=== PATIENT | female | born 1980 | race Caucasian/White ===

== ENCOUNTER → 2017-05-05 | Outpatient (CLI) | payer MEDICAID ==
--- NOTE | 2017-05-07 02:11 | RADIOLOGY REPORT (SQ) ---
EXAM DESCRIPTION: CERV SP 4 OR 5 VIEWS COMPLETED DATE/TIME: 05/05/2017 1:20 pm REASON FOR STUDY: CERVICALGIA COMPARISON: Cervical spine radiographs 12/12/2009 NUMBER OF VIEWS: Five views. TECHNIQUE: AP, lateral, obliques and odontoid radiographic images acquired of the cervical spine. LIMITATIONS: None. FINDINGS: MINERALIZATION: Normal. ALIGNMENT: Anatomic. VERTEBRAE: Vertebral bodies of normal height. DISCS: There is mild disc space loss of height with anterior and posterior osteophyte formation at C5 -6. FORAMINA: Mild to moderate bilateral C3-4 foraminal narrowing, mild bilateral C4-5 and C5-6 foraminal narrowing. Moderate bilateral C6-7 foraminal narrowing. LATERAL AND POSTERIOR ELEMENTS: Facets, lateral masses and spinous processes without significant find ings. HARDWARE: None in the spine. SOFT TISSUES: No masses or calcifications. Lung apices clear. OTHER: No other significant finding. IMPRESSION: Mild diffuse degenerative changes as above TECHNICAL DOCUMENTATION: JOB ID: [id number] [employer]- All Rights Reserved
== END ==
LOC: RAD 12:51
PROVIDERS: ATTEND Internal Medicine
DX: M54.2 Cervicalgia (principal)
CPT/HCPCS: 72050

== ENCOUNTER 2017-08-06 11:18 | Emergency (ER) | payer SELFPAY ==
--- NOTE | 2017-08-06 11:53 | ER Document Report ---
HPI - HPI Patient complains to provider of: Cough for several days Onset: Other - 2 days Pain Level: 4 Context: 37-year-old smoker female with coughing for 2 days. No chest pain or shortness of breath. Lost her voice with head congestion. No fever. No chills. No nausea vomiting or diarrhea. No abdominal pain. LMP now Associated Symptoms: None Exacerbated by: Denies Relieved by: Denies - ROS ROS below otherwise negative: Yes Systems Reviewed and Negative: Yes All other systems reviewed and negative - CONSTITUTIONAL Constitutional: REPORTS: Fever - patient states. DENIES: Chills - EENT EENT: REPORTS: Sore Throat - w/cough - RESPIRATORY Respiratory: REPORTS: Trouble Breathing, Coughing Past Medical History - General Information source: Patient - Social History Smoking Status: Current Every Day Smoker Chew tobacco use (# tins/day): No Frequency of alcohol use: Occasional Drug Abuse: None Family History: Arthritis, CAD, CVA, DM, Hyperlipidemia, Hypertension Patient has suicidal ideation: No Patient has homicidal ideation: No - Past Medical History Cardiac Medical History: Reports: Hx Hypertension Pulmonary Medical History: Reports: Hx Bronchitis Neurological Medical History: Reports: Hx Migraine Renal/ Medical History: Reports: Hx Ovarian Cysts. Denies: Hx Peritoneal Dialysis Musculoskeltal Medical History: Reports Hx Musculoskeletal Deformity, Reports Hx Musculoskeletal Trauma Psychiatric Medical History: Reports: Hx Anxiety, Hx Depression Past Surgical History: Reports: Hx Tubal Ligation - Immunizations Hx Diphtheria, Pertussis, Tetanus Vaccination: No - unk when last recieved Vertical Provider Document - CONSTITUTIONAL Agree With Documented VS: Yes Exam Limitations: No Limitations General Appearance: No Apparent Distress - INFECTION CONTROL TRAVEL OUTSIDE OF THE [place] IN LAST 30 DAYS: No - HEENT HEENT: Normocephalic, Pharyngeal Erythema. negative: Conjuctival Injection, Pharyngeal Tenderness - NECK Neck: Supple. negative: Lymphadenopathy-Left, Lymphadenopathy-Right - RESPIRATORY Respiratory: No Respiratory Distress, Wheezing - Expiratory bilateral. negative : Rales O2 Sat by Pulse Oximetry: 97 - CARDIOVASCULAR Cardiovascular: Regular Rate, Regular Rhythm - GI/ABDOMEN Gastrointestinal: Abdomen Soft, Abdomen Non-Tender, No Organomegaly - MUSCULOSKELETAL/EXTREMETIES Musculoskeletal/Extremeties: MAEW, FROM - NEURO Level of Consciousness: Awake, Alert - DERM Integumentary: Warm, Dry, No Rash Course - Re-evaluation Re-evalutation: 08/06/17 Chest x-ray is negative and there is still some wheezing but I have given her more prednisone and albuterol metered-dose inhaler and told her to stop smoking. - Vital Signs Vital signs: Temp Pulse Resp BP Pulse Ox 98.2 F 91 20 154/88 H 97 08/06/17 11:27 08/06/17 11:27 08/06/17 11:27 08/06/17 11:27 08/06/17 11:27 Discharge - Discharge Clinical Impression: bronchtis with wheezing Condition: Good Disposition: HOME, SELF-CARE Instructions: Bronchitis With Bronchospasm (Wheezing) (OM), Inhaled Bronchodilators (OM), Stop Smoking (OM), Steroid Medication Additional Instructions: plenty of fluids rest stop smoking use the inhaler every 3 hours for cough finish the prednisone Prescriptions: Albuterol Sulfate [Proair HFA Inhalation Aerosol 8.5 gm MDI] 2 puff IH Q3HP PRN #1 [email or web address] PRN Reason: Prednisone [Deltasone 20 mg Tablet] 40 mg PO DAILY #8 tablet Forms: Return to Work Referrals: IMER FIELD MD [ACTIVE STAFF] - Follow up as needed
[2017-08-06] MEDS ORDERED: PREDNISONE 20 MG TABLET PO ONE (12:04)
[2017-08-06] MEDS ORDERED: ONDANSETRON 4 MG TAB.RAPDIS PO ONE (12:04)
[2017-08-06] MEDS ORDERED: IPRATROPIUM/ALBUTEROL 0.5-2.5 MG/3 ML AMPUL NEB ONE (12:04)
[2017-08-06] MEDS ORDERED: ALBUTEROL SULFATE 0.083% NEB 2.5 MG/3 ML AMPUL NEB ONE (12:24)
--- NOTE | 2017-08-06 13:47 | RADIOLOGY REPORT (SQ) ---
EXAM DESCRIPTION: CHEST PA/LAT COMPLETED DATE/TIME: 08/06/2017 1:26 pm REASON FOR STUDY: cough COMPARISON: None. EXAM PARAMETERS: NUMBER OF VIEWS: two views TECHNIQUE: Digital Frontal and Lateral radiographic views of the chest acquired. RADIATION DOSE: NA LIMITATIONS: none FINDINGS: LUNGS AND PLEURA: No opacities, masses or pneumothorax. No pleural effusion. MEDIASTINUM AND HILAR STRUCTURES: No masses or contour abnormalities. HEART AND VASCULAR STRUCTURES: Heart normal size. No evidence for failure. BONES: No acute findings. HARDWARE: None in the chest. OTHER: No other significant finding. IMPRESSION: NO SIGNIFICANT RADIOGRAPHIC FINDING IN THE CHEST. TECHNICAL DOCUMENTATION: JOB ID: [id number] [employer]- All Rights Reserved
[2017-08-06 14:32] VITALS: BP 153/87
== END 2017-08-06 14:32 | disposition home or self-care (01) ==
LOC: ER 11:18
DX: J40 Bronchitis, not specified as acute or chronic (principal); R06.2 Wheezing; R05 Cough; R09.81 Nasal congestion; F17.200 Nicotine dependence, unspecified, uncomplicated
CPT/HCPCS: 94640 ×2; 99283; 71020; S0119; J7512; J7620

== ENCOUNTER 2017-11-24 10:14 | Emergency (ER) | payer SELFPAY ==
--- NOTE | 2017-11-24 10:54 | ER Document Report ---
ED General - General Chief Complaint: Psych Problem Stated Complaint: PSYCH EVAL Time Seen by Provider: 11/24/17 10:46 TRAVEL OUTSIDE OF THE [place] IN LAST 30 DAYS: No - HPI Patient complains to provider of: Depression Notes: 37-year-old female presents with increasing depression. recently lost his job about a month ago family has had a great deal of financial burdens. She now finds herself tearful every day unable to even manage her children's homework. Denies suicidal homicidal ideation denies all other physical complaints. Looking to get connected with some outpatient resources to help manage her "nerves. Patient takes daily Celexa, as needed Ativan. - Related Data Allergies/Adverse Reactions: No Known Allergies Allergy (Verified 11/24/17 10:17) Past Medical History - Social History Smoking Status: Current Every Day Smoker Family History: Arthritis, CAD, CVA, DM, Hyperlipidemia, Hypertension - Past Medical History Cardiac Medical History: Reports: Hx Hypertension Pulmonary Medical History: Reports: Hx Bronchitis Neurological Medical History: Reports: Hx Migraine Renal/ Medical History: Reports: Hx Ovarian Cysts. Denies: Hx Peritoneal Dialysis Musculoskeltal Medical History: Reports Hx Musculoskeletal Deformity, Reports Hx Musculoskeletal Trauma Psychiatric Medical History: Reports: Hx Anxiety, Hx Depression Past Surgical History: Reports: Hx Tubal Ligation - Immunizations Hx Diphtheria, Pertussis, Tetanus Vaccination: No - unk when last recieved Review of Systems - Review of Systems Notes: REVIEW OF SYSTEMS: CONSTITUTIONAL: -fevers, -chills EENT: -eye pain, -difficulty swallowing, -nasal congestion CARDIOVASCULAR: -chest pain, -syncope. RESPIRATORY: -cough, -SOB GASTROINTESTINAL: -abdominal pain, -nausea, -vomiting, -diarrhea GENITOURINARY: -dysuria, -hematuria MUSCULOSKELETAL: -back pain, -neck pain SKIN: -rash or skin lesions. HEMATOLOGIC: -easy bruising or bleeding. LYMPHATIC: -swollen, enlarged glands. NEUROLOGICAL: -altered mental status or loss of consciousness, -headache, - neurologic symptoms PSYCHIATRIC: Positive depression ALL OTHER SYSTEMS REVIEWED AND NEGATIVE. Physical Exam - Vital signs Vitals: Temp Pulse Resp BP Pulse Ox 97.9 F 97 20 160/100 H 100 11/24/17 10:25 11/24/17 10:25 11/24/17 10:25 11/24/17 10:25 11/24/17 10:25 - Notes Notes: PHYSICAL EXAMINATION: GENERAL: Well-appearing, well-nourished and in no acute distress. HEAD: Atraumatic, normocephalic. EYES: Pupils equal round and reactive to light, extraocular movements intact, sclera anicteric, conjunctiva are normal. ENT: nares patent, oropharynx clear without exudates. Moist mucous membranes. NECK: Normal range of motion, supple without lymphadenopathy LUNGS: Breath sounds clear to auscultation bilaterally and equal. No wheezes rales or rhonchi. HEART: Regular rate and rhythm without murmurs ABDOMEN: Soft, nontender, normoactive bowel sounds. No guarding, no rebound. No masses appreciated. EXTREMITIES: Normal range of motion, no pitting or edema. No cyanosis. NEUROLOGICAL: Cranial nerves grossly intact. Normal speech, normal gait. Normal sensory and motor exams. PSYCH: Normal mood, normal affect. SKIN: Warm, Dry, normal turgor, no rashes or lesions noted. Course - Re-evaluation Re-evalutation: 11/24/17 10:53 Pleasant female presents with increasing depression anxiety. Will consult psychology. - Vital Signs Vital signs: Temp Pulse Resp BP Pulse Ox 97.9 F 97 20 160/100 H 100 11/24/17 10:25 11/24/17 10:25 11/24/17 10:25 11/24/17 10:25 11/24/17 10:25
--- NOTE | 2017-11-24 12:11 | PSYCHOLOGICAL NOTE ---
Psych Note - Psych Note Psych Note: Reason for consult; anxiety/depression symptoms Time of consult 11:20 AM; final disposition;12:20 pm Patient is a 37-year-old female. Patient reports that a year and a half ago her "nerves started acting up". Patient reports that her anxiety has caused her to not eat food and not sleep regularly. Patient reports that on average she gets 2-3 hours of sleep per night. Patient reports the only thing she has eaten in the last 24 hours was "1 bite of a cheeseburger" and feels that it is due to her nerves. Patient reports that 30 years ago she received therapy to treat her anxiety but has not been back since. Patient reports that she is not sure what her previous mental health diagnosis was. Patient reports that she feels like she cannot function because she was not able to help her son do his homework last night. Patient reports that one year ago her dad and she has been dealing with those emotions which has caused her to feel even more anxious. Patient reports that she has high blood pressure and takes medication to treat this, takes Ativan 0.5 mg twice a day to treat her anxiety, and Celexa 40 mg once a day. Patient reports she is seen at Dr. Rodriguez's at [facility]. Patient reports she is interested in resources to find an outpatient therapist to help her deal with the loss of her father, and her anxiety. Patient provided verbal consent to speak to her Jasen Pritchard. Clinician observed patient is tearful. Medications recommendations made by contracted [facility] psychiatric provider Dr. Marifer MD includes: D/C ativan D/C Celexa Begin BuSpar 10 mg twice a day Begin Effexor 37.5 mg twice a day Diagnosis; Per history 300.00 unspecified anxiety disorder V62.82 uncomplicated bereavement Impression/plan; patient is psychiatrically cleared for discharge by mental health. Recommendation for patient to follow-up with outpatient therapy provider. Clinician provided psychoeducation on anxiety disorder and treatment options (evidence based therapies). Clinician observed patient is still in bereavement due to the loss of father. Clinician recommended patient receive grief counseling. Consulted with Dr. Larios regarding the management and care of patient.
[2017-11-24 13:07] VITALS: BP 159/86
== END 2017-11-24 13:00 | disposition home or self-care (01) ==
LOC: ER 10:14
DX: F32.9 Major depressive disorder, single episode, unspecified (principal); I10 Essential (primary) hypertension; Z79.899 Other long term (current) drug therapy; F17.200 Nicotine dependence, unspecified, uncomplicated
CPT/HCPCS: 99284

== ENCOUNTER 2018-03-07 20:18 | Emergency (ER) | payer SELFPAY ==
[2018-03-07 20:57] LABS: ABSOLUTE BASOPHILS # (AUTO) 0.2 10^3/uL (0.0-0.2); ABSOLUTE EOSINOPHILS # (AUTO) 0.3 10^3/uL (0.0-0.6); ABSOLUTE LYMPHOCYTES (AUTO) 5.5 10^3/uL (0.5-4.7); ABSOLUTE MONOCYTES (AUTO) 0.9 10^3/uL (0.1-1.4); ABSOLUTE NEUT (AUTO) 11.7 10^3/uL (1.7-8.2); BASOPHILS % (AUTO) 0.9 % (0-2); EOSINOPHILS % (AUTO) 1.4 % (0-6); HEMATOCRIT 39.5 % (36.0-47.0); HEMOGLOBIN 13.7 g/dL (12.0-15.5); LYMPHOCYTES % (AUTO) 29.7 % (13-45); MEAN CORPUSCULAR HGB CONC 34.7 g/dL (32.0-36.0); MEAN CORPUSCULAR VOLUME 98 fl (80-97); MONOCYTES % (AUTO) 5.1 % (3-13); PLATELET COUNT 268 10^3/uL (150-450); RED BLOOD COUNT 4.04 10^6/uL (3.72-5.28); RED CELL DISTRIBUTION WIDTH 13.3 % (11.5-14.0); SEGMENTED NEUTROPHILS % (AUTO) 62.9 % (42-78); TOTAL CELLS COUNTED % (AUTO) 100 %; WHITE BLOOD COUNT 18.5 10^3/uL (4.0-10.5)
[2018-03-07 20:59] LABS: APPEARANCE,URINE CLEAR; BILIRUBIN,URINE NEGATIVE (NEGATIVE); COLOR,URINE STRAW; GLUCOSE, URINE NEGATIVE (NEGATIVE); KETONES,URINE NEGATIVE (NEGATIVE); LEUKOCYTE ESTERASE,URINE SMALL (NEGATIVE); NITRITE,URINE NEGATIVE (NEGATIVE); PROTEIN,URINE NEGATIVE (NEGATIVE); URINE SPECIFIC GRAVITY 1.004; UROBILINOGEN,URINE NEGATIVE mg/dL (<2.0)
[2018-03-07] MEDS ORDERED: NORMAL SALINE 1000 ML 2,000 ML IV ONE (21:11)
[2018-03-07] MEDS ORDERED: NICOTINE 21 MG/24 HR PATCH.TD24 TD ONE (21:12)
--- NOTE | 2018-03-07 21:12 | ER Document Report ---
ED General - General Chief Complaint: Overdose Stated Complaint: POSSIBLE OVERDOSE Time Seen by Provider: 03/07/18 20:32 Cannot obtain history due to: Uncooperative Notes: Patient is a 37-year-old female with a past medical history of anxiety and depression who presents after an intentional overdose on 30 tablets of Zanaflex. The patient is tearful, history somewhat limited secondary to anxiety at time of presentation. She states that she did this to "just go away ". Patient states that "I just do not want to be here anymore". She does however deny that this was an overt suicide attempt. She states the last time she attempted to harm herself as when she was a child when her parents became . She denies any coingestions today other than Zanaflex. She notes that she has been taking her lorazepam Celexa as prescribed but did not take any extra of those medications today. She denies any symptoms at the time of my assessment than mild lightheadedness. She did receive activated charcoal and IV fluids by EMS prior to arrival. She denies any specific trigger for today's event although seems very hesitant to discuss what occurred today to trigger her to attempt to harm herself. TRAVEL OUTSIDE OF THE [place] IN LAST 30 DAYS: No - Related Data Allergies/Adverse Reactions: No Known Allergies Allergy (Verified 03/07/18 20:56) Past Medical History - General Information source: Patient - Social History Smoking Status: Current Every Day Smoker Frequency of alcohol use: None Drug Abuse: None Lives with: Spouse/Significant other Family History: Arthritis, CAD, CVA, DM, Hyperlipidemia, Hypertension Patient has suicidal ideation: Yes Patient has homicidal ideation: No - Past Medical History Cardiac Medical History: Reports: Hx Hypertension Pulmonary Medical History: Reports: Hx Bronchitis, Hx COPD Neurological Medical History: Reports: Hx Migraine Renal/ Medical History: Reports: Hx Ovarian Cysts. Denies: Hx Peritoneal Dialysis Musculoskeltal Medical History: Reports Hx Musculoskeletal Deformity, Reports Hx Musculoskeletal Trauma Psychiatric Medical History: Reports: Hx Anxiety, Hx Depression Past Surgical History: Reports: Hx Tubal Ligation - Immunizations Hx Diphtheria, Pertussis, Tetanus Vaccination: No - unk when last recieved Review of Systems - Review of Systems Notes: Constitutional: Negative for fever. HENT: Negative for sore throat. Eyes: Negative for visual changes. Cardiovascular: Negative for chest pain. Positive for lightheadedness Respiratory: Negative for shortness of breath. Gastrointestinal: Negative for abdominal pain, vomiting or diarrhea. Genitourinary: Negative for dysuria. Musculoskeletal: Negative for back pain. Skin: Negative for rash. Neurological: Negative for headaches, weakness or numbness. 10 point ROS negative except as marked above and in HPI. Physical Exam - Vital signs Vitals: Temp 98.8 F 03/07/18 20:20 Interpretation: Hypotensive Notes: PHYSICAL EXAMINATION: GENERAL: Well-appearing, well-nourished and in no acute distress. HEAD: Atraumatic, normocephalic. EYES: Pupils equal round and reactive to light, extraocular movements intact, sclera anicteric, conjunctiva are normal. ENT: nares patent, oropharynx clear without exudates. Moist mucous membranes. NECK: Normal range of motion, supple without lymphadenopathy LUNGS: Breath sounds clear to auscultation bilaterally and equal. No wheezes rales or rhonchi. HEART: Regular rate and rhythm without murmurs ABDOMEN: Soft, nontender, normoactive bowel sounds. No guarding, no rebound. No masses appreciated. EXTREMITIES: Normal range of motion, no pitting or edema. No cyanosis. NEUROLOGICAL: No focal neurological deficits. Moves all extremities spontaneously and on command. PSYCH: Anxious, tearful SKIN: Warm, Dry, normal turgor, no rashes or lesions noted. Course - Re-evaluation Re-evalutation: 03/07/18 21:10 Patient presents after intentionally overdosing on 30 tablets of Zanaflex. She states that she "just wants to go away"but will not overtly state that this was a suicide attempt. The patient denies a history of similar in the past. She is unwilling to discuss further the trigger for today's events. The patient denies any physical complaints other than family she needs a cigarette. The patient has been placed on involuntary commitment due to her overdose. She is noted to be moderately hypotensive, pressure is currently 90 on 50 and she is receiving IV fluids. Poison control has been contacted. They have recommended cardiac monitoring for 6 hours postingestion. She is receiving IV fluids for her hypotension and will require ongoing reassessments. 03/07/18 22:43 Patient blood pressure has normalized after receiving IV fluids. She remains without tachycardia. She remains awake and alert. Will continue to monitor on telemetry. 03/08/18 03:19 Patient is medically cleared for evaluation and disposition by psychiatry in the morning. She has remained hemodynamically within normal limits for the past several hours. Poison control has been updated and is agreeable to discontinuation of medical monitoring at this time point. - Vital Signs Vital signs: Temp Pulse Resp BP Pulse Ox 97.9 F 19 132/68 H 95 03/08/18 02:44 03/08/18 02:42 03/08/18 02:42 03/08/18 02:42 - Laboratory Result Diagrams: 03/07/18 20:30 03/07/18 20:30 Laboratory results interpreted by me: 03/07/18 03/07/18 03/07/18 20:30 20:30 20:31 WBC 18.5 H MCV 98 H MCH 34.0 H Absolute Neutrophils 11.7 H Absolute Lymphocytes 5.5 H Sodium 145.9 H Chloride 112 H Carbon Dioxide 18 L BUN 4 L Glucose 144 H Urine Blood SMALL H Ur Leukocyte Esterase SMALL H Salicylates < 1.0 L Acetaminophen < 10 L - EKG Interpretation by Me Additional EKG results interpreted by me: 03/08/18 03:18 Sinus rhythm. Rate 74. No ST elevations or depressions. QTC is 449. Discharge - Discharge Clinical Impression: Suicide attempt, Anxiety Drug overdose, intentional Qualifiers: Encounter type: initial encounter Qualified Code(s): T50.902A - Poisoning by unspecified drugs, medicaments and biological substances, intentional self-harm , initial encounter Condition: Fair Referrals: ERIN FREITAS MD [Primary Care Provider] - Follow up as needed
[2018-03-07 21:13] LABS: URINE AMPHETAMINES SCREEN NEGATIVE; URINE BARBITURATES SCREEN NEGATIVE; URINE BENZODIAZEPINES SCREEN NEGATIVE; URINE COCAINE SCREEN NEGATIVE; URINE MARIJUANA (THC) SCREEN NEGATIVE; URINE METHADONE SCREEN NEGATIVE; URINE PHENCYCLIDINE SCREEN NEGATIVE
[2018-03-07 21:14] LABS: ALANINE AMINOTRANSFERASE 43 U/L (9-52); ALBUMIN 4.1 g/dL (3.5-5.0); ALCOHOL 82 mg/dL (NONE DETECTED); ALKALINE PHOSPHATASE 87 U/L (38-126); ANION GAP 16 (5-19); ASPARTATE AMINO TRANSFERASE 29 U/L (14-36); BILIRUBIN,DIRECT 0.2 mg/dL (0.0-0.4); BILIRUBIN,TOTAL 0.2 mg/dL (0.2-1.3); BLOOD UREA NITROGEN 4 mg/dL (7-20); CALCIUM 9.6 mg/dL (8.4-10.2); CARBON DIOXIDE 18 mmol/L (22-30); CHLORIDE 112 mmol/L (98-107); GLUCOSE 144 mg/dL (75-110); SODIUM 145.9 mmol/L (137-145); TOTAL PROTEIN 6.8 g/dL (6.3-8.2)
[2018-03-07 21:16] LABS: ACETAMINOPHEN < 10 ug/mL (10-30); SALICYLATE < 1.0 mg/dL (2.0-20.0)
--- NOTE | 2018-03-07 22:14 | EKG REPORT ---
SEVERITY:- ABNORMAL ECG - SINUS RHYTHM ABNORMAL T, CONSIDER ISCHEMIA, LATERAL LEADS : Confirmed by: Rory Vallejo 07-Mar-2018 22:13:34
[2018-03-08] MEDS ORDERED: AMLODIPINE BESYLATE 10 MG TABLET PO ONE (09:44)
--- NOTE | 2018-03-08 09:46 | ER Document Report ---
Doctor's Note Notes: This is a 37-year-old female with a history of hypertension that presented yesterday after an intentional overdose with Zanaflex in the setting of depression and suicidal ideation. Patient was hypotensive initially. Ultimately, her blood pressure improved and she is now IVC for psychiatric evaluation. Currently, vital signs are stable. She is alert and oriented 3, she wants to apologize to her and son for yesterday. Her physical exam is unremarkable. Will restart the blood pressure medicine. 03/08/18 09:46 03/08/18 10:13 03/08/18 18:25 Discussed case with psychiatry and the family has come in. The plan will be for transfer for inpatient psychiatric care.
[2018-03-08] MEDS ORDERED: ACETAMINOPHEN 325 MG TABLET PO ONE (10:13)
[2018-03-08] MEDS ORDERED: NICOTINE 21 MG/24 HR PATCH.TD24 TD ONE (10:20)
[2018-03-08] MEDS ORDERED: VENLAFAXINE HCL 37.5 MG CAP.SR.24H PO SCH ×2 (11:45→22:00)
[2018-03-08] MEDS ORDERED: BUSPIRONE HCL 10 MG TABLET PO SCH ×2 (11:45→22:00)
[2018-03-08] MEDS ORDERED: VENLAFAXINE HCL 37.5 MG CAP.SR.24H PO ONE (12:30)
[2018-03-08] MEDS ORDERED: BUSPIRONE HCL 10 MG TABLET PO ONE (12:30)
[2018-03-08 14:19] LABS: APPEARANCE,URINE CLEAR; BILIRUBIN,URINE NEGATIVE (NEGATIVE); COLOR,URINE COLORLESS; GLUCOSE, URINE NEGATIVE (NEGATIVE); KETONES,URINE NEGATIVE (NEGATIVE); LEUKOCYTE ESTERASE,URINE NEGATIVE (NEGATIVE); NITRITE,URINE NEGATIVE (NEGATIVE); PROTEIN,URINE NEGATIVE (NEGATIVE); URINE SPECIFIC GRAVITY 1.001; UROBILINOGEN,URINE NEGATIVE mg/dL (<2.0)
[2018-03-08 15:25] LABS: ABSOLUTE BASOPHILS # (AUTO) 0.1 10^3/uL (0.0-0.2); ABSOLUTE EOSINOPHILS # (AUTO) 0.2 10^3/uL (0.0-0.6); ABSOLUTE LYMPHOCYTES (AUTO) 4.9 10^3/uL (0.5-4.7); ABSOLUTE MONOCYTES (AUTO) 0.8 10^3/uL (0.1-1.4); ABSOLUTE NEUT (AUTO) 9.9 10^3/uL (1.7-8.2); BASOPHILS % (AUTO) 0.4 % (0-2); EOSINOPHILS % (AUTO) 1.4 % (0-6); HEMATOCRIT 40.3 % (36.0-47.0); LYMPHOCYTES % (AUTO) 30.8 % (13-45); MEAN CORPUSCULAR HEMOGLOBIN 33.5 pg (27.0-33.4); MEAN CORPUSCULAR HGB CONC 34.6 g/dL (32.0-36.0); MEAN CORPUSCULAR VOLUME 97 fl (80-97); MONOCYTES % (AUTO) 5.2 % (3-13); PLATELET COUNT 226 10^3/uL (150-450); RED BLOOD COUNT 4.17 10^6/uL (3.72-5.28); RED CELL DISTRIBUTION WIDTH 13.6 % (11.5-14.0); SEGMENTED NEUTROPHILS % (AUTO) 62.2 % (42-78); TOTAL CELLS COUNTED % (AUTO) 100 %; WHITE BLOOD COUNT 15.9 10^3/uL (4.0-10.5)
--- NOTE | 2018-03-08 16:39 | PSYCHOLOGICAL NOTE ---
Psych Note - Psych Note Psych Note: Pt presents to the ER via EMS after taking 30 4mg tabs of zanaflex. Pt reports that she has not been suicidal for an extended period of time but that she felt overwhelmed today. Pt did not report much more than that as pt became tearful. Patient disclosed she arrived to [facility] ED via EMS because she "took too many pills." Patient states "it got to be too much yesterday." Patient states that she is has multiple stressors both at home and at work. Patient was able to further explain that her suffers from seizures and yesterday he had a seizure when she called out to work her boss "is a crazy lady" which originally fired her for not coming in but then called back 30 minutes later to rehire her. She continued disclose other stressors in the home which include her brother has moved into her home with his family present brand-new baby) while she states she knows she is not responsible for them she feels she is because her and her home. She reports that her father approximately 2 years ago she was very close with him so on Wednesday, Father's Day, it was very difficult for her. She continued disclosed that she has been trying to get on Medicaid so has not followed up with any outpatient services and denies changing her medications because she feels that medication she was on was working. Patient is alert and orientated to person, place, time and circumstance. Mood is dysphoric with congruent affect. Patient confirms overdose of her medications with intent at self-harm. Patient denies homicidal ideation. Delusions are absent behaviors congruent with intact reality based presentation i.e. organized and linear thought process. Eye contact was fair. Conversational speech was within normal rate, tone and prosody. Intellectual abilities appear to be within the average range. Attention and concentration were fair. Insight, judgment, impulse control are poor. Chart review conducted. Patient was seen approximately 3 months ago with recommendations of medication adjustments and obtaining outpatient mental health treatment. Patient did not follow recommendations. Medication recommendations per [facility]'s contracted psychiatrist Dr. Marifer RENEE are as follows Please stop home medications of Celexa and Ativan 1. Effexor 37.5 mg twice daily 2. BuSpar 10 mg twice daily Impression\\plan: Patient is recommended to continue under IVC. Patient was seen approximately 3 months ago and did not follow any recommendations provided which included medication changes and obtaining outpatient mental health provider. There is significant concern the patient is now presenting after intentional overdose after patient reports increase in home and job stressors. Medication recommendations have been provided. Dr. Larios was consulted and the care and management this patient; attending physician is in agreement with recommendations and disposition. Patient was accepted to [facility]; transportation will occur today
--- NOTE | 2018-03-08 21:47 | ER Document Report ---
Doctor's Note Notes: 03/08/18 21:47 [facility] department deputies are here to transport the patient to [facility]. Her vital signs are stable. She is stable for transport.
[2018-03-08 21:57] VITALS: BP 135/75
== END 2018-03-08 21:50 ==
LOC: ER 20:18
DX: T42.8X2A Poisoning by antiparkinsonism drugs and other central muscle-tone depressants, intentional self-harm, initial encounter (principal); F41.9 Anxiety disorder, unspecified; F32.9 Major depressive disorder, single episode, unspecified; Z79.899 Other long term (current) drug therapy; F17.210 Nicotine dependence, cigarettes, uncomplicated; I10 Essential (primary) hypertension; J44.9 Chronic obstructive pulmonary disease, unspecified
CPT/HCPCS: 93005; 99285; 36415; 87086; 80307 ×4; 84702; 85025; 87088; 80053; 81001; 87186; 93010; J3490; J7030

== ENCOUNTER 2018-07-11 15:01 | Emergency (ER) | payer SELFPAY ==
[2018-07-11 15:15] VITALS: BP 137/80
--- NOTE | 2018-07-11 15:47 | ER Document Report ---
ED Medical Screen (RME) - General Chief Complaint: Chest Pain Stated Complaint: CHEST,ARM PAIN Time Seen by Provider: 07/11/18 15:24 Notes: Patient is a 38-year-old female that presents to the emergency department for chief complaint of chest pain. Patient states she started having chest pain around 7 AM this morning, initially as a sharp pain, currently rates the pain as a 4 out of 10, now more of a dull ache that is constant, radiates to her left jaw and arm. She had associated shortness of breath as well. ROS: Unless otherwise stated in this report the patient's positive and negative responses for review of systems for constitutional, eyes, ENT, cardiovascular, respiratory, gastrointestinal, neurological, genitourinary, musculoskeletal, and integumentary systems and related systems to the presenting problem are either as stated in the HPI or were not pertinent or were negative for the symptoms and/or complaints related to the presenting medical problem. PHYSICAL EXAMINATION: Vital signs reviewed. GENERAL: Well-appearing, well-nourished and in no acute distress. HEAD: Atraumatic, normocephalic. EYES: Pupils equal round extraocular movements intact, conjunctiva are normal. ENT: Nares patent NECK: Normal range of motion CV: Heart regular rate and rhythm LUNGS: No respiratory distress Musculoskeletal: Normal range of motion NEUROLOGICAL: Normal speech PSYCH: Normal mood, normal affect. MDM: Patient seen and examined for rapid initial assessment. Vital signs reviewed. EKG reviewed, no STEMI, she did have some trace ST depressions, but these were present on her prior EKG . A comprehensive ED assessment and evaluation of the patient, analysis of test results and completion of the medical decision making process will be conducted by additional ED providers. *Note is created using voice recognition software and may contain spelling, syntax or grammatical errors. TRAVEL OUTSIDE OF THE [place] IN LAST 30 DAYS: No - Related Data Allergies/Adverse Reactions: No Known Allergies Allergy (Verified 03/07/18 20:56) Past Medical History - Social History Chew tobacco use (# tins/day): No Frequency of alcohol use: Occasional Drug Abuse: None - Past Medical History Cardiac Medical History: Reports: Hx Hypertension Pulmonary Medical History: Reports: Hx Bronchitis, Hx COPD Neurological Medical History: Reports: Hx Migraine Renal/ Medical History: Reports: Hx Ovarian Cysts. Denies: Hx Peritoneal Dialysis Musculoskeltal Medical History: Reports Hx Musculoskeletal Deformity, Reports Hx Musculoskeletal Trauma Psychiatric Medical History: Reports: Hx Anxiety, Hx Depression Past Surgical History: Reports: Hx Tubal Ligation - Immunizations Hx Diphtheria, Pertussis, Tetanus Vaccination: No - unk when last recieved Physical Exam - Vital signs Vitals: Temp Pulse Resp BP Pulse Ox 98.8 F 87 16 137/80 H 99 07/11/18 15:13 07/11/18 15:13 07/11/18 15:13 07/11/18 15:13 07/11/18 15:13 Course - Re-evaluation Re-evalutation: Cardiac workup was initiated in the patient, EKG was reviewed, no STEMI, however patient did not want any further workup, and wished to leave AGAINST MEDICAL ADVICE, encouraged her that this is not a good idea given that she does have some ischemic changes on her EKG, however she refused, stating that she cannot afford it, does not want any further evaluation, patient left AMA. After performing a Medical Screening Examination, I spoke with the patient at length in regards to leaving the hospital against medical advice. I discussed evaluation for their presenting complaint and recommended further evaluation. I do not believe the patient should leave but the patient is alert oriented x4, understands the risks and benefits of staying and leaving including disability and . Pt understands that they can return at any time for further care and is more than welcome to do so. Pt verbalizes this understanding. - Vital Signs Vital signs: Temp Pulse Resp BP Pulse Ox 98.8 F 87 16 137/80 H 99 07/11/18 15:13 07/11/18 15:13 07/11/18 15:13 07/11/18 15:13 07/11/18 15:13 - EKG Interpretation by Me Additional EKG results interpreted by me: EKG demonstrates sinus rhythm with a ventricular rate of 87 bpm, normal axis, normal intervals, there are ST depressions, in leads II, III and aVF, as well as V4 through V6, this is compared with prior EKG, that did demonstrate the same changes. Doctor's Discharge - Discharge Clinical Impression: Chest pain Qualifiers: Chest pain type: unspecified Qualified Code(s): R07.9 - Chest pain, unspecified Condition: Fair Disposition: AGAINST MEDICAL ADVICE Instructions: Chest Pain of Unclear Cause ([facility]) Forms: Parent Work Note Referrals: ERIN FREITAS MD [Primary Care Provider] - Follow up as needed
--- NOTE | 2018-07-11 23:18 | EKG REPORT ---
SEVERITY:- NORMAL ECG - SINUS RHYTHM LVH WITH SEC ST-T CHANGES : Confirmed by: Rory Vallejo 11-Jul-2018 23:18:00
== END 2018-07-11 16:29 | disposition left against medical advice (07) ==
LOC: ER 15:01
DX: R07.9 Chest pain, unspecified (principal); M79.602 Pain in left arm; R06.02 Shortness of breath; I10 Essential (primary) hypertension; J44.9 Chronic obstructive pulmonary disease, unspecified; Z98.51 Tubal ligation status
CPT/HCPCS: 36415; 93005; 93010; 99285

== ENCOUNTER 2018-08-23 05:02 | Emergency (ER) | payer SELFPAY ==
[2018-08-23] MEDS ORDERED: ASPIRIN 81 MG TABLET, CHEWABLE PO ONE (05:46)
--- NOTE | 2018-08-23 05:47 | ER Document Report ---
ED Medical Screen (RME) - General Chief Complaint: Chest Pain Stated Complaint: CHEST PAIN Time Seen by Provider: 08/23/18 05:45 Notes: Patient is a 38-year-old female presenting to the emergency department complaining of 5 out of 10 sharp chest pain. Patient states the chest pain is underneath her left breast and awoke her from sleeping. Patient then noted she was also short of breath. Patient denies any episodes of diaphoresis. Patient does states she has a history of COPD and did not take her albuterol inhaler prior to coming to the emergency room. Past medical history: Hypertension, anxiety Medications: Lorazepam, patient is unsure of her hypertension medication Allergies: None Patient does admit to everyday cigarette smoking. Physical exam: Lung sounds clear to equal all [place], chest pain is under left breast and nonreproducible at this time. I have greeted and performed a rapid initial assessment of this patient. A comprehensive ED assessment and evaluation of the patient, analysis of test results and completion of the medical decision making process will be conducted by additional ED providers. TRAVEL OUTSIDE OF THE [place] IN LAST 30 DAYS: No - Related Data Allergies/Adverse Reactions: No Known Allergies Allergy (Verified 03/07/18 20:56) Past Medical History - Past Medical History Cardiac Medical History: Reports: Hx Hypertension Pulmonary Medical History: Reports: Hx Bronchitis, Hx COPD Neurological Medical History: Reports: Hx Migraine Renal/ Medical History: Reports: Hx Ovarian Cysts. Denies: Hx Peritoneal Dialysis Musculoskeltal Medical History: Reports Hx Musculoskeletal Deformity, Reports Hx Musculoskeletal Trauma Psychiatric Medical History: Reports: Hx Anxiety, Hx Depression Past Surgical History: Reports: Hx Tubal Ligation - Immunizations Hx Diphtheria, Pertussis, Tetanus Vaccination: No - unk when last recieved Physical Exam - Vital signs Vitals: Temp Pulse Resp BP Pulse Ox 98.6 F 90 20 180/99 H 100 08/23/18 05:17 08/23/18 05:17 08/23/18 05:17 08/23/18 05:17 08/23/18 05:17 Course - Vital Signs Vital signs: Temp Pulse Resp BP Pulse Ox 98.6 F 90 20 180/99 H 100 08/23/18 05:17 08/23/18 05:17 08/23/18 05:17 08/23/18 05:17 08/23/18 05:17 Doctor's Discharge - Discharge Referrals: ERIN FREITAS MD [Primary Care Provider] - Follow up as needed
[2018-08-23 05:56] LABS: ABSOLUTE BASOPHILS # (AUTO) 0.1 10^3/uL (0.0-0.2); ABSOLUTE EOSINOPHILS # (AUTO) 0.2 10^3/uL (0.0-0.6); ABSOLUTE LYMPHOCYTES (AUTO) 3.3 10^3/uL (0.5-4.7); ABSOLUTE MONOCYTES (AUTO) 0.6 10^3/uL (0.1-1.4); ABSOLUTE NEUT (AUTO) 6.8 10^3/uL (1.7-8.2); BASOPHILS % (AUTO) 0.8 % (0-2); EOSINOPHILS % (AUTO) 1.7 % (0-6); HEMATOCRIT 40.7 % (36.0-47.0); HEMOGLOBIN 14.3 g/dL (12.0-15.5); LYMPHOCYTES % (AUTO) 30.2 % (13-45); MEAN CORPUSCULAR HEMOGLOBIN 33.4 pg (27.0-33.4); MEAN CORPUSCULAR HGB CONC 35.1 g/dL (32.0-36.0); MEAN CORPUSCULAR VOLUME 95 fl (80-97); MONOCYTES % (AUTO) 5.2 % (3-13); PLATELET COUNT 209 10^3/uL (150-450); RED BLOOD COUNT 4.27 10^6/uL (3.72-5.28); RED CELL DISTRIBUTION WIDTH 13.5 % (11.5-14.0); SEGMENTED NEUTROPHILS % (AUTO) 62.1 % (42-78); TOTAL CELLS COUNTED % (AUTO) 100 %
[2018-08-23 06:03] LABS: ALANINE AMINOTRANSFERASE 18 U/L (9-52); ALBUMIN 3.9 g/dL (3.5-5.0); ALKALINE PHOSPHATASE 91 U/L (38-126); ANION GAP 15 (5-19); ASPARTATE AMINO TRANSFERASE 28 U/L (14-36); BILIRUBIN,DIRECT 0.3 mg/dL (0.0-0.4); BILIRUBIN,TOTAL 0.4 mg/dL (0.2-1.3); BLOOD UREA NITROGEN 5 mg/dL (7-20); CARBON DIOXIDE 19 mmol/L (22-30); CHLORIDE 108 mmol/L (98-107); CREATINE KINASE 47 U/L (30-135); GLUCOSE 124 mg/dL (75-110); POTASSIUM 3.6 mmol/L (3.6-5.0); SODIUM 142.4 mmol/L (137-145); TOTAL PROTEIN 6.9 g/dL (6.3-8.2)
[2018-08-23 06:14] LABS: CREATINE KINASE MB 0.23 ng/mL (<4.55)
[2018-08-23 06:15] LABS: TROPONIN I < 0.012 ng/mL
--- NOTE | 2018-08-23 06:23 | RADIOLOGY REPORT (SQ) ---
CLINICAL HISTORY: CP COMPARISON: August 06, 2017. TECHNIQUE: XR CHEST 1 VIEW 08/23/2018 5:47 AM OIL CHANGER FINDINGS: Cardiac silhouette is normal in size. Lungs are clear without consolidation, atelectasis, mass or edema. There is no pleural effusion. There is no pneumothorax. There are no acute osseous findings. IMPRESSION: Clear lungs.
--- NOTE | 2018-08-23 07:32 | ER Document Report ---
ED Cardiac - General Chief Complaint: Chest Pain Stated Complaint: CHEST PAIN Time Seen by Provider: 08/23/18 05:45 Mode of Arrival: Ambulatory Information source: Patient TRAVEL OUTSIDE OF THE [place] IN LAST 30 DAYS: No - HPI Patient complains to provider of: Other - 38-year-old female with a history of hypertension as well as early stages of COPD that presents for evaluation of pain along the left side of her chest which developed since yesterday. She has been feeling unwell for a week with a cough and some shortness of breath. She had a vague pain in the left side of the chest which prompted her to seek care today. She is not taking any medications currently because of pricing issues and she has continued to be an every day smoker. She denies any loss of consciousness or similar symptoms in the past save a single episode which she was evaluated in the emergency department for and discharged after a reassuring workup. - Related Data Allergies/Adverse Reactions: No Known Allergies Allergy (Verified 08/23/18 07:21) Past Medical History - General Information source: Patient - Social History Smoking Status: Current Every Day Smoker Smoking Education Provided: Yes Family History: Arthritis, CAD, CVA, DM, Hyperlipidemia, Hypertension Patient has suicidal ideation: No Patient has homicidal ideation: No - Past Medical History Cardiac Medical History: Reports: Hx Hypertension Pulmonary Medical History: Reports: Hx Bronchitis, Hx COPD Neurological Medical History: Reports: Hx Migraine Renal/ Medical History: Reports: Hx Ovarian Cysts. Denies: Hx Peritoneal Dialysis Musculoskeletal Medical History: Reports Hx Musculoskeletal Deformity, Reports Hx Musculoskeletal Trauma Psychiatric Medical History: Reports: Hx Anxiety, Hx Depression Past Surgical History: Reports: Hx Tubal Ligation - Immunizations Hx Diphtheria, Pertussis, Tetanus Vaccination: No - unk when last recieved Review of Systems - Review of Systems -: Yes All other systems reviewed and negative Physical Exam - Vital signs Vitals: Resp 27 H 08/23/18 05:11 - General General appearance: Appears well In distress: None - HEENT Head: Normocephalic Eyes: Normal Conjunctiva: Normal Cornea: Normal Extraocular movements intact: Yes Eyelashes: Normal Pupils: PERRL - Respiratory Respiratory status: Tachypnea Chest status: Nontender Breath sounds: Wheezing - Faint wheezes in the apices bilaterally Chest palpation: Normal - Cardiovascular Rhythm: Regular Heart sounds: Normal auscultation Murmur: No - Abdominal Inspection: Normal Distension: No distension Bowel sounds: Normal Tenderness: Nontender Organomegaly: No organomegaly - Back Back: Normal, Nontender - Extremities General upper extremity: Normal inspection, Nontender, Normal color, Normal ROM , Normal temperature General lower extremity: Normal inspection, Nontender, Normal color, Normal ROM , Normal temperature, Normal weight bearing. No: Anabell's sign - Neurological Neuro grossly intact: Yes Cognition: Normal Orientation: AAOx4 [place] Coma Scale Eye Opening: Spontaneous [place] Coma Scale Verbal: Oriented [place] Coma Scale Motor: Obeys Commands [place] Coma Scale Total: 15 Speech: Normal Motor strength normal: LUE, RUE, LLE, RLE Sensory: Normal - Psychological Associated symptoms: Normal affect, Normal mood Course - Re-evaluation Re-evalutation: 08/23/18 15:41 This well-appearing 38-year-old female presents for evaluation of shortness of breath. In the past she has been told that she has the early stages of emphysema and COPD. Through triage she had labs drawn as well as an x-ray of her chest ordered. She is got faint wheezes in the apices of her lungs. Her work of breathing is not profoundly elevated however. We will plan for troponins x2 reassessment. Patient with 2- troponins emergency department, normal chest x-ray relatively speaking, she does have wheezing in her lungs as such we will plan to treat this patient primarily as a COPD exacerbation and reactive airway exacerbation. Believe she is safe for discharge with return precautions and encouraged follow- up with her primary physicians we did spend an extended amount of time speaking about the importance of smoking cessation for her as I believe is a likely major contributor to her shortness of breath. She verbalized understanding will attempt to quit smoking. - Vital Signs Vital signs: Temp Pulse Resp BP Pulse Ox 98.6 F 90 12 168/108 H 99 08/23/18 05:17 08/23/18 05:17 08/23/18 11:02 08/23/18 11:01 08/23/18 11:02 - Laboratory Result Diagrams: 08/23/18 05:33 08/23/18 05:33 Laboratory results interpreted by me: 08/23/18 08/23/18 05:33 05:33 WBC 11.0 H Chloride 108 H Carbon Dioxide 19 L BUN 5 L Glucose 124 H Discharge - Discharge Clinical Impression: COPD (chronic obstructive pulmonary disease) Qualifiers: COPD type: unspecified COPD Qualified Code(s): J44.9 - Chronic obstructive pulmonary disease, unspecified Chest pain Qualifiers: Chest pain type: unspecified Qualified Code(s): R07.9 - Chest pain, unspecified Condition: Good Disposition: HOME, SELF-CARE Instructions: Chest Pain of Unclear Cause ([facility]) Additional Instructions: You were seen today in the emergency department for your chest pain. Have evaluation including a physical exam as well as blood work and chest x-ray. You will be given a prescription for a brief course of steroids, he will be given also a brief prescription of an antibiotic this is being treated like a COPD exacerbation. Return in case of any worsening chest pain, shortness of breath, fevers, chills. You should also stop smoking. Prescriptions: Amlodipine Besylate [Norvasc 10 mg Tablet] 10 mg PO DAILY #30 tablet Azithromycin [Zithromax] 250 mg PO DAILY #4 tablet Prednisone [Deltasone 20 mg Tablet] 3 tab PO DAILY 5 Days #15 tablet Forms: Smoking Cessation Education, Elevated Blood Pressure Referrals: ERIN FREITAS MD [Primary Care Provider] - Follow up as needed
[2018-08-23] MEDS ORDERED: AMLODIPINE BESYLATE 10 MG TABLET PO ONE (10:17)
[2018-08-23] MEDS ORDERED: AZITHROMYCIN 250 MG TABLET PO ONE (11:01)
[2018-08-23] MEDS ORDERED: PREDNISONE 20 MG TABLET PO ONE (11:01)
[2018-08-23 11:06] VITALS: BP 168/108
--- NOTE | 2018-08-23 11:20 | EKG REPORT ---
SEVERITY:- ABNORMAL ECG - SINUS RHYTHM NONSPECIFIC REPOLARIZATION ABNORMALITIES : Confirmed by: Rory Vallejo 23-Aug-2018 11:19:48
== END 2018-08-23 11:16 | disposition home or self-care (01) ==
LOC: ER 05:02
DX: J44.9 Chronic obstructive pulmonary disease, unspecified (principal); R07.9 Chest pain, unspecified; I10 Essential (primary) hypertension; R05 Cough; R06.02 Shortness of breath; F17.200 Nicotine dependence, unspecified, uncomplicated
CPT/HCPCS: 93005; 99285; 36415; 82553; 82550; 85025; 80053; 84484; 71045; 93010; J7512

== ENCOUNTER 2019-02-14 11:52 | Emergency (ER) | payer SELFPAY ==
[2019-02-14 11:59] VITALS: BP 163/93
[2019-02-14] MEDS ORDERED: DIPHENHYDRAMINE HCL 50 MG CAPSULE PO ONE (12:45)
[2019-02-14] MEDS ORDERED: FAMOTIDINE 20 MG TABLET PO ONE (12:45)
[2019-02-14] MEDS ORDERED: DEXAMETHASONE 4 MG TABLET PO ONE (12:45)
--- NOTE | 2019-02-14 12:48 | ER Document Report ---
HPI - HPI Patient complains to provider of: Insect sting Time Seen by Provider: 02/14/19 12:33 Onset: This afternoon Onset/Duration: Better Pain Level: Denies Context: Patient states that she got stung by an insect to the left posterior thigh area. Patient states area was swollen, red and stinging. Patient states that since her arrival here her symptoms have completely resolved. Patient became concerned because her father has anaphylactic reactions to insect bites. Associated Symptoms: None. denies: Nonproductive cough, Fever, Headache Exacerbated by: Denies Relieved by: Denies Similar symptoms previously: No Recently seen / treated by doctor: No - ROS ROS below otherwise negative: Yes Systems Reviewed and Negative: Yes All other systems reviewed and negative - CONSTITUTIONAL Constitutional: DENIES: Fever - NEURO Neurology: DENIES: Weakness - GASTROINTESTINAL Gastrointestinal: DENIES: Nausea - REPRODUCTIVE Reproductive: DENIES: : - MUSCULOSKELETAL Musculoskeletal: REPORTS: Extremity pain - Initially to left thigh, now r - DERM Skin Color: Normal Skin Problems: None Past Medical History - General Information source: Patient - Social History Smoking Status: Never Smoker Frequency of alcohol use: Occasional Drug Abuse: None Occupation: Housecleaning Lives with: Family Family History: Arthritis, CAD, CVA, DM, Hyperlipidemia, Hypertension - Past Medical History Cardiac Medical History: Reports: Hx Hypertension Pulmonary Medical History: Reports: Hx Bronchitis, Hx COPD Neurological Medical History: Reports: Hx Migraine Renal/ Medical History: Reports: Hx Ovarian Cysts. Denies: Hx Peritoneal Dialysis Musculoskeletal Medical History: Reports Hx Musculoskeletal Deformity, Reports Hx Musculoskeletal Trauma Psychiatric Medical History: Reports: Hx Anxiety, Hx Depression Past Surgical History: Reports: Hx Tubal Ligation - Immunizations Hx Diphtheria, Pertussis, Tetanus Vaccination: No - unk when last recieved Vertical Provider Document - CONSTITUTIONAL Agree With Documented VS: Yes Exam Limitations: No Limitations General Appearance: WD/WN, No Apparent Distress - INFECTION CONTROL TRAVEL OUTSIDE OF THE [place] IN LAST 30 DAYS: No - HEENT HEENT: Atraumatic, Normal ENT Exam, Normocephalic Notes: No angioedema, no potential airway compromise - NECK Neck: Normal Inspection, Supple. negative: Lymphadenopathy-Left, Lymphadenopathy-Right - RESPIRATORY Respiratory: Breath Sounds Normal, No Respiratory Distress - CARDIOVASCULAR Cardiovascular: Regular Rate, Regular Rhythm - BACK Back: Normal Inspection - MUSCULOSKELETAL/EXTREMETIES Musculoskeletal/Extremeties: MAEW, FROM, Non-Tender - NEURO Level of Consciousness: Awake, Alert, Appropriate Motor/Sensory: No Motor Deficit - DERM Integumentary: Warm, Dry, No Rash Notes: No rash, hives or any obvious site of a insect bite to the posterior aspect of the left thigh. Course - Re-evaluation Re-evalutation: 02/14/19 12:46 Patient reports that since she is got here her symptoms have all completely resolved at this time. Patient was concerned as her father has anaphylactic reactions to insect stings. Good return precautions discussed with patient. - Vital Signs Vital signs: Temp Pulse Resp BP Pulse Ox 98 F 84 18 163/93 H 99 02/14/19 11:56 02/14/19 11:56 02/14/19 11:56 02/14/19 11:56 02/14/19 11:56 Discharge - Discharge Clinical Impression: Insect bite Qualifiers: Encounter type: sequela Site of insect bite: thigh Laterality: left Qualified Code(s): S70.362S - Insect bite (nonvenomous), left thigh, sequela Condition: Stable Disposition: HOME, SELF-CARE Instructions: Use of Diphenhydramine, Insect Bites ([facility]), Steroid Medication Additional Instructions: Return immediately for any new or worsening symptoms Followup with your primary care provider, call tomorrow to make a followup appointment Take Benadryl [id number] as directed to help with symptoms. Forms: Return to Work Referrals: ERIN FREITAS MD [Primary Care Provider] - Follow up as needed
== END 2019-02-14 13:06 | disposition home or self-care (01) ==
LOC: ER 11:52
DX: T63.481A Toxic effect of venom of other arthropod, accidental (unintentional), initial encounter (principal); X58.XXXA Exposure to other specified factors, initial encounter; I10 Essential (primary) hypertension; Z98.51 Tubal ligation status
CPT/HCPCS: 99281

== ENCOUNTER → 2019-06-27 | Outpatient (CLI) | payer MEDICAID ==
--- NOTE | 2019-06-27 14:30 | RADIOLOGY REPORT (SQ) ---
EXAM DESCRIPTION: LUMBAR SPINE COMPLETE COMPLETED DATE/TIME: 06/27/2019 1:15 pm REASON FOR STUDY: CERVICALGIA;LUMBAGO WITH SCIATICA M54.2 CERVICALGIA M54.40 LUMBAGO WITH SCIATICA , UNSPECIFIED SIDE COMPARISON: None. NUMBER OF VIEWS: Five views including obliques. TECHNIQUE: AP, lateral, oblique, and sacral radiographic images acquired of the lumbar spine. LIMITATIONS: None. FINDINGS: MINERALIZATION: Normal. SEGMENTATION: Normal. No transitional anatomy. ALIGNMENT: Normal. VERTEBRAE: Maintained height. No fracture or worrisome bone lesion. DISCS: Disc spaces are fairly well maintained. There are marginal osteophytes at L3-4. POSTERIOR ELEMENTS: Hypertrophic facet changes at L5-S1. HARDWARE: None in the spine. PARASPINAL SOFT TISSUES: Normal. PELVIS: Intact as visualized. No fractures or worrisome bone lesions. SI joints intact. OTHER: No other significant finding. IMPRESSION: Spondylosis. Facet arthropathy. TECHNICAL DOCUMENTATION: JOB ID: [id number] [employer]- All Rights Reserved Reading location - IP/workstation name: [email or web address]
--- NOTE | 2019-06-27 14:32 | RADIOLOGY REPORT (SQ) ---
EXAM DESCRIPTION: C SP 4 OR 5 VIEWS COMPLETED DATE/TIME: 06/27/2019 1:15 pm REASON FOR STUDY: CERVICALGIA;LUMBAGO WITH SCIATICA M54.2 CERVICALGIA M54.40 LUMBAGO WITH SCIATICA , UNSPECIFIED SIDE COMPARISON: None. NUMBER OF VIEWS: Five views. TECHNIQUE: AP, lateral, obliques and odontoid radiographic images acquired of the cervical spine. LIMITATIONS: None. FINDINGS: MINERALIZATION: Normal. ALIGNMENT: Anatomic. VERTEBRAE: Vertebral bodies of normal height. DISCS: There is mild disc narrowing at multiple levels, most prominently at C5-6. Marginal osteophyt es are present. FORAMINA: There is mild narrowing of the right neural foramina at C5-6 and C4-5 secondary to uncovert ebral osteophytes. LATERAL AND POSTERIOR ELEMENTS: Facets, lateral masses and spinous processes without significant find ings. HARDWARE: None in the spine. SOFT TISSUES: No masses or calcifications. Lung apices clear. OTHER: No other significant finding. IMPRESSION: Mild degenerative disc disease and spondylosis. TECHNICAL DOCUMENTATION: JOB ID: [id number] [employer]- All Rights Reserved Reading location - IP/workstation name: [email or web address]
== END ==
LOC: OD 12:51
PROVIDERS: ATTEND Internal Medicine
DX: M54.2 Cervicalgia (principal); M54.40 Lumbago with sciatica, unspecified side
CPT/HCPCS: 72050; 72110

== ENCOUNTER 2019-08-07 15:12 | Emergency (ER) | payer MEDICAID ==
[2019-08-07 15:31] VITALS: BP 174/94
[2019-08-07] MEDS ORDERED: HYDROCODONE/ACETAMINOPHEN 5-325 MG TABLET PO ONE ×2 (15:56→19:43)
--- NOTE | 2019-08-07 15:58 | ER Document Report ---
ED Medical Screen (RME) - General Chief Complaint: Hand Injury Stated Complaint: FINGER INJURY Time Seen by Provider: 08/07/19 15:50 Primary Care Provider: ERIN FREITAS MD [Primary Care Provider] - Follow up as needed Notes: Patient is a 39-year-old female who presents the emergency department with a chief complaint of left hand pain. Patient states that yesterday she had fallen and landed on her left hand and forearm. Her hand ended up rolling and she ended up with a deformity to her left fourth finger. She is unable to put her left fourth finger straight. She has been taking ibuprofen for the pain. She thought that the swelling would go away, but the swelling did not and she continued to have the deformity. Patient also states that she is having some numbness from her fourth finger DIP joint distally. She also has some proximal forearm pain. Exam: Obvious deformity to left fourth finger. Tenderness to left proximal forearm. I have greeted and performed a rapid initial assessment of this patient. A comprehensive ED assessment and evaluation of the patient, analysis of test results and completion of medical decision making process will be conducted by an additional ED providers. TRAVEL OUTSIDE OF THE [place] IN LAST 30 DAYS: No - Related Data Allergies/Adverse Reactions: No Known Allergies Allergy (Verified 02/14/19 11:54) Past Medical History - Social History Frequency of alcohol use: Occasional Drug Abuse: None - Past Medical History Cardiac Medical History: Reports: Hx Hypertension Pulmonary Medical History: Reports: Hx Bronchitis, Hx COPD Neurological Medical History: Reports: Hx Migraine Renal/ Medical History: Reports: Hx Ovarian Cysts. Denies: Hx Peritoneal Dialysis Musculoskeltal Medical History: Reports Hx Musculoskeletal Deformity, Reports Hx Musculoskeletal Trauma Psychiatric Medical History: Reports: Hx Anxiety, Hx Depression Past Surgical History: Reports: Hx Tubal Ligation - Immunizations Hx Diphtheria, Pertussis, Tetanus Vaccination: No - unk when last recieved Physical Exam - Vital signs Vitals: Temp Pulse BP Pulse Ox 98.6 F 95 174/94 H 100 08/07/19 15:30 08/07/19 15:30 08/07/19 15:30 08/07/19 15:30 Course - Vital Signs Vital signs: Temp Pulse Resp BP Pulse Ox 98.6 F 95 174/94 H 100 08/07/19 15:30 08/07/19 15:30 08/07/19 15:30 08/07/19 15:30 Doctor's Discharge - Discharge Referrals: ERIN FREITAS MD [Primary Care Provider] - Follow up as needed
--- NOTE | 2019-08-07 16:47 | RADIOLOGY REPORT (SQ) ---
EXAM DESCRIPTION: FOREARM LEFT COMPLETED DATE/TIME: 08/07/2019 4:06 pm REASON FOR STUDY: left hand deformity/pain; forearm pain COMPARISON: Left hip films same date NUMBER OF VIEWS: Two views. TECHNIQUE: Two radiographic images acquired of the left forearm, including elbow and wrist in at [facility] [facility] one projection. LIMITATIONS: None. FINDINGS: MINERALIZATION: Normal. BONES: No acute fracture of the distal humerus, radius, or ulna. Carpal bones are grossly intact. 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 OTHER: No other significant finding. IMPRESSION: No acute fracture or malalignment left forearm TECHNICAL DOCUMENTATION: JOB ID: [id number] [employer]- All Rights Reserved Reading location - IP/workstation name: [email or web address]
--- NOTE | 2019-08-07 16:49 | RADIOLOGY REPORT (SQ) ---
EXAM DESCRIPTION: HAND LEFT 3 VIEWS COMPLETED DATE/TIME: 08/07/2019 4:06 pm REASON FOR STUDY: left hand deformity/pain; COMPARISON: Left forearm two views same date EXAM PARAMETERS: NUMBER OF VIEWS: Three views. TECHNIQUE: AP, lateral and oblique radiographic images acquired of the left hand. LIMITATIONS: None. FINDINGS: MINERALIZATION: Normal. BONES: Acute fracture, 4th finger middle phalanx adjacent to the DIP joint. Radial angulation of the distal fracture fragment and 4th DIP joint. Hypoplastic 5th metacarpal JOINTS: Radial angulation of the distal fracture fragment at the 4th middle phalanx/DIP joint. SOFT TISSUES: 4th finger soft tissue swelling. No foreign body. OTHER: No other significant finding. IMPRESSION: Acute fracture, 4th finger middle phalanx adjacent to the DIP joint. Radial angulation o f the distal fracture fragment and 4th DIP joint. TECHNICAL DOCUMENTATION: JOB ID: [id number] [employer]- All Rights Reserved Reading location - IP/workstation name: [email or web address]
--- NOTE | 2019-08-07 19:19 | ER Document Report ---
HPI - HPI Patient complains to provider of: Finger injury Time Seen by Provider: 08/07/19 15:50 Onset: Yesterday Onset/Duration: Sudden Quality of pain: Achy Pain Level: 5 Context: Patient states she was walking on a slick deck and fell injuring her left fourth finger. Patient states pain radiates into the forearm. Patient is right-hand dominant. Patient with positive deformity. Associated Symptoms: Other - Left fourth finger injury Exacerbated by: Movement Relieved by: Denies Similar symptoms previously: No Recently seen / treated by doctor: No - ROS ROS below otherwise negative: Yes Systems Reviewed and Negative: Yes All other systems reviewed and negative - GASTROINTESTINAL Gastrointestinal: DENIES: Nausea - REPRODUCTIVE Reproductive: DENIES: : - MUSCULOSKELETAL Musculoskeletal: REPORTS: Extremity pain, Swelling - DERM Skin Color: Ecchymosis Skin Problems: None Past Medical History - General Information source: Patient - Social History Smoking Status: Current Every Day Smoker Frequency of alcohol use: Occasional Drug Abuse: None 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 Denies: Hx Peritoneal Dialysis Musculoskeletal Medical History: Reports Hx Musculoskeletal Deformity, Reports Hx Musculoskeletal Trauma Psychiatric Medical History: Reports: Hx Anxiety, Hx Depression Past Surgical History: Reports: Hx Tubal Ligation - Immunizations Hx Diphtheria, Pertussis, Tetanus Vaccination: No - unk when last recieved Vertical Provider Document - CONSTITUTIONAL Agree With Documented VS: Yes Exam Limitations: No Limitations General Appearance: WD/WN, No Apparent Distress - INFECTION CONTROL TRAVEL OUTSIDE OF THE [place] IN LAST 30 DAYS: No - HEENT HEENT: Atraumatic, Normocephalic - NECK Neck: Normal Inspection - RESPIRATORY Respiratory: Breath Sounds Normal, No Respiratory Distress - CARDIOVASCULAR Cardiovascular: Regular Rate, Regular Rhythm Pulses: Normal: Radial - BACK Back: Normal Inspection - MUSCULOSKELETAL/EXTREMETIES Musculoskeletal/Extremeties: Tender - L 4th finger, Edema, Eccymosis Notes: blister overlying left fourth finger DIP joint - NEURO Level of Consciousness: Awake, Alert, Appropriate - DERM Integumentary: Warm, Dry Course - Re-evaluation Re-evalutation: 08/07/19 19:[address] Gonzáles regarding patient presentation, x-rays reviewed. Dr. Joaquin recommends outpatient orthopedic follow-up. Recommends immobilizing finger here tonight. Dr. Joaquin does not recommend attempts at reducing fracture. 08/07/19 19:[address] solis who advises having pt call office tomorrow for f/u this week in office. agrees with discharge plan of care - Vital Signs Vital signs: Temp Pulse Resp BP Pulse Ox 98.6 F 95 174/94 H 100 08/07/19 15:30 08/07/19 15:30 08/07/19 15:30 08/07/19 15:30 - Diagnostic Test Radiology reviewed: Image reviewed, Reports reviewed Procedures - Immobilization Left Finger 4th digit Pre-Proc Neuro Vasc Exam: Normal Immobilizer type: Finger splint (Static) Performed by: Provider assisted Post-Proc Neuro Vasc Exam: Normal Alignment checked and good: Yes Discharge - Discharge Clinical Impression: Finger fracture, left Qualifiers: Encounter type: initial encounter Finger: ring finger Fracture type: closed Phalanx: middle Fracture alignment: displaced Qualified Code(s): S62.625A - Displaced fracture of middle phalanx of left ring finger, initial encounter for closed fracture Condition: Stable Disposition: HOME, SELF-CARE Instructions: Fractured Finger ([facility]), Ice & Elevation ([facility]), Splint Precautions ([facility]) Additional Instructions: Return immediately for any new or worsening symptoms Followup with your primary care provider, call tomorrow to make a followup appointment Follow-up with Dr. Solis's office this week for further management. Call their office tomorrow to let them know that Dr. Solis recommended that you be seen this week. You will need to call your primary doctor's office tomorrow so that they can help start the stat referral so that you can be seen in the orthopedics office. Take your pain medication that you have at home as prescribed Referrals: ERIN FREITAS MD [Primary Care Provider] - Follow up as needed ALONSO SOLIS DO [ACTIVE STAFF] - 08/09/19
== END 2019-08-07 19:59 | disposition home or self-care (01) ==
LOC: ER 15:12
DX: S62.625A Displaced fracture of middle phalanx of left ring finger, initial encounter for closed fracture (principal); W01.0XXA Fall on same level from slipping, tripping and stumbling without subsequent striking against object, initial encounter; F17.200 Nicotine dependence, unspecified, uncomplicated; I10 Essential (primary) hypertension; J44.9 Chronic obstructive pulmonary disease, unspecified; Z98.51 Tubal ligation status
CPT/HCPCS: 99283

== ENCOUNTER 2019-08-15 13:54 | Day surgery (SDC) | payer MEDICAID ==
[~2019-08-15 13:54] MED LIST: CEFAZOLIN SODIUM 2 GM in DEXTROSE 5%-WATER 100 ML IV PRN; FENTANYL CITRATE INJ/PF 100 MCG/2 ML AMPUL ONE; MIDAZOLAM 2 MG/2 ML INJ ONE; PROPOFOL INJ 200 MG/20 ML VIAL IV ONE
[2019-08-15] MEDS ORDERED: FAMOTIDINE INJ/PF 20 MG/2 ML SDV IV ONE ×2 (15:00→15:22)
[2019-08-15] MEDS ORDERED: ALBUTEROL SULFATE 0.083% NEB 2.5 MG/3 ML AMPUL NEB ONE ×2 (15:00→15:01)
[2019-08-15] MEDS ORDERED: METOCLOPRAMIDE HCL INJ/PF 10 MG/2 ML SDV IV ONE (15:00)
[2019-08-15] MEDS ORDERED: MIDAZOLAM 2 MG/2 ML INJ ONE (15:21)
[2019-08-15] MEDS ORDERED: METOCLOPRAMIDE HCL INJ/PF 10 MG/2 ML SDV ONE (15:21)
[2019-08-15 15:45] LABS: HEMATOCRIT 38.6 % (36.0-47.0); HEMOGLOBIN 13.3 g/dL (12.0-15.5); MEAN CORPUSCULAR HEMOGLOBIN 34.3 pg (27.0-33.4); MEAN CORPUSCULAR HGB CONC 34.5 g/dL (32.0-36.0); MEAN CORPUSCULAR VOLUME 99 fl (80-97); PLATELET COUNT 270 10^3/uL (150-450); RED BLOOD COUNT 3.89 10^6/uL (3.72-5.28); RED CELL DISTRIBUTION WIDTH 13.8 % (11.5-14.0); WHITE BLOOD COUNT 16.5 10^3/uL (4.0-10.5)
--- NOTE | 2019-08-15 15:59 | RADIOLOGY REPORT (SQ) ---
EXAM DESCRIPTION: CHEST SINGLE VIEW COMPLETED DATE/TIME: 08/15/2019 3:43 pm REASON FOR STUDY: PRE OP COMPARISON: 08/23/2018 EXAM PARAMETERS: NUMBER OF VIEWS: One view. TECHNIQUE: Single frontal radiographic view of the chest acquired. RADIATION DOSE: NA LIMITATIONS: None. FINDINGS: LUNGS AND PLEURA: No opacities, masses or pneumothorax. No pleural effusion. MEDIASTINUM AND HILAR STRUCTURES: No masses. Contour normal. HEART AND VASCULAR STRUCTURES: Heart normal in size. Normal vasculature. BONES: No acute findings. HARDWARE: None in the chest. OTHER: No other significant finding. IMPRESSION: NO ACUTE RADIOGRAPHIC FINDING IN THE CHEST. TECHNICAL DOCUMENTATION: JOB ID: [id number] [employer]- All Rights Reserved Reading location - IP/workstation name: [email or web address]
[2019-08-15] MEDS ORDERED: LIDOCAINE 1% INJ-PF (10 MG/ML) 30 ML SDV ONE (16:08)
[2019-08-15 16:09] LABS: ANION GAP 11 (5-19); BLOOD UREA NITROGEN 11 mg/dL (7-20); CALCIUM 10.2 mg/dL (8.4-10.2); CARBON DIOXIDE 22 mmol/L (22-30); CHLORIDE 106 mmol/L (98-107); GLUCOSE 85 mg/dL (75-110); POTASSIUM 4.2 mmol/L (3.6-5.0)
[2019-08-15] MEDS ORDERED: ONDANSETRON HCL INJ/PF 4 MG/2 ML SDV IV PRN (16:42)
[2019-08-15] MEDS ORDERED: DIPHENHYDRAMINE HCL 50 MG/ML VIAL IV PRN (16:42)
[2019-08-15] MEDS ORDERED: MEPERIDINE HCL/PF INJ 25 MG/1 ML DISP.SYRIN IV PRN (16:42)
[2019-08-15] MEDS ORDERED: MORPHINE SULFATE 10 MG/ML INJ IV PRN (16:42)
[2019-08-15] MEDS ORDERED: FENTANYL CITRATE INJ/PF 100 MCG/2 ML AMPUL IV PRN ×3 (16:42)
[2019-08-15] MEDS ORDERED: PROMETHAZINE HCL INJ 25 MG/1 ML VIAL IV PRN ×2 (16:42)
[2019-08-15] MEDS ORDERED: OXYCODONE-ACETAMINOPHEN 5-325 MG TABLET PO PRN (16:59)
--- NOTE | 2019-08-15 16:59 | Discharge Summary ---
Discharge Summary (SDC) - Discharge Final Diagnosis: Left ring finger fracture dislocation Date of Surgery: 08/15/19 Discharge Date: 08/15/19 Condition: Good Treatment or Instructions: Schedule Follow Up w/ Dr. Damion Solis @ [facility] for Surgery to be seen in 10-14 days or as scheduled [place]: [place]: [place]: Ice and elevate Keep splint clean/dry/intact, do not remove. If your fingers become numb please unwrap the Ramírez wrap but leave the splint in place, if the sensation does not return within 30 minutes please return to the emergency department. Please use ibuprofen (Motrin or Advil) 600-800 mg every 8 hours as needed for pain or fever DO NOT TAKE w/ TORADOL may use once TORADOL complete. You may also use acetaminophen (Tylenol) 1000 mg every 4-6 hours as needed for pain or fever. Please be aware that many medications contain acetaminophen, do not exceed a total of 1000 mg of acetaminophen every 6 hours. If ibuprofen and acetaminophen are not sufficient for your pain you may take the Percocet/[place]. Please be aware that the Percocet/[place] does contain Tylenol. Stool softener of choice when on pain medication. USE OF VSQU-ONY-XPLXYXB IBUPROFEN: Ibuprofen (Advil, Nuprin, Medipren, Motrin IB) is a medication for fever and pain control. In addition, it has anti- inflammatory effects which may be beneficial, especially in the treatment of injuries. It's best to take ibuprofen with food. Persons with ulcer disease or allergy to aspirin should notify their physician of this before taking ibuprofen. Ibuprofen can be given every four to six hours, for a total of four doses daily. Age Pain or fever dose Antiinflammatory dose 6-8 yr 200 mg (1 tab) 200 mg (1 tab) 9-11 yr 200 mg (1 tab) 200-400 mg (1-2 tab) 11-14 yr 200-400 mg (1-2 tab) 400 mg (2 tab) 15-adult 400 mg (2 tab) 600 mg (3 tab) ORAL NARCOTIC MEDICATION: You have been given a prescription for pain control. This medication is a narcotic. It's best taken with food, as nausea can result if taken on an empty stomach. Don't operate machinery or drive within six hours of taking this medication. Do not combine this medicine with alcohol, or with any medication which can cause sedation (such as cold tablets or sleeping pills) unless you get permission from the physician. Narcotics tend to cause constipation. If possible, drink plenty of fluids and eat a diet high in fiber and fruits. Please be aware that prescription narcotics also have the potential for abuse. People become addicted to these medications because of the general sense of wellbeing that they induce. This feeling along with a significant reduction in tension, anxiety, and aggression provides a stimulating seductive quality to these drugs. Once your pain is under control, we encourage you to discard your unused narcotics. Prescriptions: Oxycodone HCl/Acetaminophen [Percocet 7.5-325 mg Tablet] 1 tab PO Q6 PRN #25 tab PRN Reason: Referrals: ERIN FREITAS MD [Primary Care Provider] - Discharge Diet: As Tolerated Respiratory Treatments at Home: Deep Breathing/Coughing Discharge Activity: No Lifting Over 10 Pounds, No Lifting/Push/Pulling Report the Following to Your Physician Immediately: Fever over 101 Degrees, Unusual Bleeding, Redness, Swelling, Warmth
--- NOTE | 2019-08-15 17:02 | Operative Report ---
Operative Report DATE OF SURGERY: 08/15/19 PREOPERATIVE DIAGNOSIS: Left ring finger intra-articular middle phalanx fracture with associated DIP joint dislocation POSTOPERATIVE DIAGNOSIS: Same OPERATION: 1. Left ring finger closed reduction percutaneous pinning intra-clifford cular middle phalanx fracture at the DIP joint. 2. Left ring finger transarticular pinning DIP joint dislocation SURGEON: ALONSO RUIZ ANESTHESIA: GA PROCEDURE: Indication for above procedure: 39-year-old female who sustained a fall injuring her left ring finger on 08/06/2019. Patient was seen at the emergency room where it was placed in a splint radiographs performed. Repeat radiographs in my office demonstrated fracture dislocation of the DIP joint close reduction was attempted which improved alignment but patient continued to have malalignment of the articular segment. At that point decision was made to proceed with operative intervention. Procedure In Detail: Patient was seen and evaluated in the preoperative holding area. The left upper extremity was initialized and marked. Patient received 2g of Ancef IV for bacterial prophylaxis. Patient was taken back to the operative room where transferred to the operative table. Once they were adequately anesthetized a nonsterile tourniquet was placed on the upper extremity. A surgical team debriefing was performed ensuring all instrumentation was available, the surgical procedure was discussed with possible concerns reviewed. A digital block to the left ring finger is was performed utilizing 10 mL of 1% lidocaine without epinephrine. The upper extremity was prepped with chlorhexidine and alcohol and draped in a sterile fashion. A timeout was done identifying correct patient, procedure and extremity everyone in attendance agree with this and verbalized no concerns. Digital tourniquet was placed. Ulnar condyle fragment was reduced with a reduction tenaculum to the intact radial condyle of the middle phalanx at the DIP joint. Intra-articular step-off was corrected there is no evidence of diastases with step-off less than 1 mm. A total of three 0.035 K wires were placed obliquely across the fracture fragment under live fluoroscopy to ensure bicortical fixation. At completion the fracture was stable with stress however there was instability of the DIP joint. And thus an additional 0.045 K wire was placed transarticular across the DIP joint to correct the instability secondary to patient's original fracture dislocation of the DIP joint. K wire was then cut and left just outside the skin. Xeroform, Telfa, loosely applied Coban and AlumaFoam splint immobilizing the DIP joint was placed. Digital tourniquet was removed patient had normal peripheral perfusion. Sponge counts, instrument counts, needle counts counts were correct. Patient was then awoken from anesthesia. Transferred from the operating room table to the operating room stretcher. There was no intraoperative complications patient tolerated procedure well stable to PACU. Postoperative plan: Patient will follow-up as scheduled for wound check. We will obtain radiographs at follow-up.
[2019-08-15] MEDS ORDERED: OXYCODONE-ACETAMINOPHEN 5-325 MG TABLET ONE (18:06)
--- NOTE | 2019-08-15 18:17 | EKG REPORT ---
SEVERITY:- ABNORMAL ECG - SINUS RHYTHM NONSPECIFIC T ABNORMALITIES, LATERAL LEADS : Confirmed by: Rory Vallejo 15-Aug-2019 18:16:59
--- NOTE | 2019-08-15 19:02 | RADIOLOGY REPORT (SQ) ---
EXAM DESCRIPTION: NO CHG FLUORO; FINGER LEFT COMPLETED DATE/TIME: 08/15/2019 6:16 pm REASON FOR STUDY: PERC PINNING 2ND DIGIT COMPARISON: None. FLUOROSCOPY TIME: 38 seconds 5 Images saved to PACS LIMITATIONS: None. PROCEDURE: Percutaneous pinning of the 2nd digit FINDINGS: Images from fluoro document placement pins in the head of the middle phalanx. IMPRESSION: Percutaneous pinning. Refer to operative note for further information. COMMENT: PQRS 6045F: Fluoroscopy time of the procedure is documented in the report. TECHNICAL DOCUMENTATION: JOB ID: [id number] [employer]- All Rights Reserved Reading location - IP/workstation name: [email or web address]
--- NOTE | 2019-08-15 19:02 | RADIOLOGY REPORT (SQ) ---
EXAM DESCRIPTION: NO CHG FLUORO; FINGER LEFT COMPLETED DATE/TIME: 08/15/2019 6:16 pm REASON FOR STUDY: PERC PINNING 2ND DIGIT COMPARISON: None. FLUOROSCOPY TIME: 38 seconds 5 Images saved to PACS LIMITATIONS: None. PROCEDURE: Percutaneous pinning of the 2nd digit FINDINGS: Images from fluoro document placement pins in the head of the middle phalanx. IMPRESSION: Percutaneous pinning. Refer to operative note for further information. COMMENT: PQRS 6045F: Fluoroscopy time of the procedure is documented in the report. TECHNICAL DOCUMENTATION: JOB ID: [id number] [employer]- All Rights Reserved Reading location - IP/workstation name: [email or web address]
[2019-08-15 19:29] VITALS: BP 155/88
== END 2019-08-15 19:05 | disposition home or self-care (01) ==
LOC: OROUT 13:54
PROVIDERS: ATTEND Orthopaedic Surgery
DX: S62.625A Displaced fracture of middle phalanx of left ring finger, initial encounter for closed fracture (principal); S63.285A Dislocation of proximal interphalangeal joint of left ring finger, initial encounter; W19.XXXA Unspecified fall, initial encounter; M79.642 Pain in left hand; M79.645 Pain in left finger(s); I10 Essential (primary) hypertension; F17.210 Nicotine dependence, cigarettes, uncomplicated; Z79.899 Other long term (current) drug therapy
CPT/HCPCS: 26776; 36415; 85027; 81025; 80048; 71045; 73140; 93005; 93010; 01820; C1713 ×2; J2250; J0690; J3010; J3490; J2765; J7060; J2704; S0028